=== PATIENT | female | born 1935 | race Caucasian/White ===

== ENCOUNTER 2016-12-13 07:30 | Day surgery (SDC) | payer OTHER ==
[~2016-12-13] VITALS: Ht 160 cm; Wt 63.9 kg
[~2016-12-13 07:30] MED LIST: ALPR0.5T99 PO; AMLO5TAB96 PO; ASPI81 PO; ATOR20TA42 PO; CARV6.25 PO; CIPR500T4 PO; CO-Q 10 PO; DICY1TAB26 PO; IMDU60TA PO; KLOR20TA6 PO; LASI20TA PO; PROT40TA PO; RANO500 OR; VITA10002 PO; VITA200017 PO
[2016-12-13] MEDS ORDERED: NS 1000 ML IV SCH (08:00)
[2016-12-13] MEDS ORDERED: INSULIN HUMAN REGULAR 1,000 UNITS/10 ML VIAL SQ PRN (08:15)
[2016-12-13] MEDS ORDERED: CHLORHEXIDINE GLUCONATE 2 % 1 PACK (2 CLOTHS) TOPICAL PRN (08:15)
[2016-12-13] MEDS ORDERED: SODIUM CHLORID 0.9% 500 ML IV PRN (08:15)
[2016-12-13] MEDS ORDERED: MUPIROCIN 2% OINT 1 APPLIC/GM SYR NASAL SCH (08:15)
[2016-12-13] MEDS ORDERED: METOPROLOL TARTRATE 25 MG TAB PO PRN (08:15)
[2016-12-13] MEDS ORDERED: LACTATED RINGER'S 1000 ML IV PRN (08:15)
[2016-12-13] MEDS ORDERED: CHLORHEXIDINE GLUCONATE 2 % 1 PACK (2 CLOTHS) TOPICAL SCH (08:15)
[2016-12-13] MEDS ORDERED: POVIDONE IODINE 5% (ANTISEPSIS KIT) 4 APPLICATIONS EACH NARE SCH (08:15)
[2016-12-13] MEDS ORDERED: VANCOMYCIN 1000 MG/NS 250 ML IV SCH ×2 (08:15)
[2016-12-13] MEDS ORDERED: POVIDONE IODINE 5% (ANTISEPSIS KIT) 4 APPLICATIONS EACH NARE PRN (08:15)
[2016-12-13] MEDS ORDERED: LORazepam 1 MG TAB SL SCH (08:15)
[2016-12-13] MEDS ORDERED: ceFAZolin 2 GM PREMIX 50 ML IV SCH (08:15)
[2016-12-13 08:42] VITALS: BP 140/67; PULSE 70; RESP 18; TEMP 98.3; O2SAT 97
[2016-12-13 09:00] LABS: AUTOMATED NEUTROPHIL # 3.7 TH/MM3 (1.8-7.7); BASOPHIL % 0.5 % (0.0-2.0); EOSINOPHIL # 0.2 TH/MM3 (0-0.4); EOSINOPHIL % 2.7 % (0.0-4.0); HEMATOCRIT 37.8 % (35.0-46.0); HEMO FLAGS DIFF FINAL; LYMPH % 27.1 % (9.0-44.0); LYMPHOCYTE # 1.7 TH/MM3 (1.0-4.8); MEAN CELL VOLUME 92.9 FL (80.0-100.0); MEAN CORPUSCULAR HGB CONC 34.5 % (32.0-36.0); NEUT % 58.7 % (16.0-70.0); PLATELET COUNT 218 TH/MM3 (150-450); RED BLOOD COUNT 4.07 MIL/MM3 (4.00-5.30); RED CELL DISTRIBUTION WIDTH 15.1 % (11.6-17.2); WHITE BLOOD COUNT 6.4 TH/MM3 (4.0-11.0)
[2016-12-13] MEDS ORDERED: PEPP90CA PO (09:04)
[2016-12-13] MEDS ORDERED: MULTTAB25 PO (09:04)
[2016-12-13] MEDS ORDERED: ATOR20TA15 PO (09:04)
[2016-12-13] MEDS ORDERED: FLUT1SPR5 EACH NARE (09:04)
[2016-12-13] MEDS ORDERED: CYCL7.5E EACH EYE (09:04)
[2016-12-13] MEDS ORDERED: LACTCAP8 PO (09:04)
[2016-12-13] MEDS ORDERED: BIOTCAP PO (09:04)
[2016-12-13] MEDS ORDERED: NITR0.4S SL (09:04)
[2016-12-13] MEDS ORDERED: ALPR.5 PO (09:04)
[2016-12-13] MEDS ORDERED: ALAV10TA4 PO (09:04)
[2016-12-13] MEDS ORDERED: FURO1TAB62 PO (09:04)
[2016-12-13] MEDS ORDERED: CARV6.252 PO (09:04)
[2016-12-13] MEDS ORDERED: FEXO15TA PO (09:04)
[2016-12-13] MEDS ORDERED: VITA100021 PO (09:04)
[2016-12-13] MEDS ORDERED: RANO500 PO (09:04)
[2016-12-13] MEDS ORDERED: COQ-50CA2 PO (09:04)
[2016-12-13] MEDS ORDERED: ASPI81CH37 CHEW (09:04)
[2016-12-13] MEDS ORDERED: AMLO10 PO (09:04)
[2016-12-13] MEDS ORDERED: VITA1000 PO (09:04)
[2016-12-13] MEDS ORDERED: ISOS60TA PO (09:04)
[2016-12-13] MEDS ORDERED: POTA-243 PO (09:04)
[2016-12-13 09:20] LABS: BICARBONATE 25.7 MEQ/L (21.0-32.0); POTASSIUM 3.8 MEQ/L (3.5-5.1)
[2016-12-13 09:36] LABS: APTT (PATIENT) 25.1 SEC (24.3-30.1); INTERNATIONAL NORMALIZED RATIO 1.1 RATIO; PROTHROMBIN TIME - PATIENT 11.7 SEC (9.8-11.6)
[2016-12-13] MEDS ORDERED: MIDAZOLAM HCL 2 MG/2 ML VIAL ONE (11:48)
[2016-12-13] MEDS ORDERED: PROPOFOL 200 MG/20 ML AMP IV ONE (11:53)
[2016-12-13] MEDS ORDERED: LIDOCAINE HCL 2% 50 ML VIAL ONE (12:09)
[2016-12-13] MEDS ORDERED: VANCOMYCIN 500 MG VIAL ONE (12:09)
[2016-12-13] MEDS ORDERED: ACETAMINOPHEN/CODEINE 300 MG/30 MG TAB PO PRN ×2 (13:00)
[2016-12-13] MEDS ORDERED: ONDANSETRON HCL 4 MG/2 ML VIAL IV PRN (13:00)
[2016-12-13] MEDS ORDERED: CEPH-460 PO (13:01)
[2016-12-13] MEDS ORDERED: ACET-534 PO (13:01)
--- NOTE | 2016-12-13 13:06 | CATHPROC ---
[facility] HIS Report Study Information Study Number Admission Scheduled Start Study Start [id number] Dec 13 2016 7:30AM 12/13/2016 Dec 13 2016 11:27AM [employer] Service Cardiac Pacer/ICD Admit Source Facility Department Other [facility] - [employer] Physician and Clinical Staff Initial Xavier Michelle Director Of Religious Life Tank Magana,RT(R) Other Anesthesia, TANK TRUCK OPERATOR Other Jordyn Duncan BSRN Recorder Narda Marie RN Scrub Antoinette Segovia RCIS Equipment Time Student Records Specialist Description Size Mfg Part Number Used/Scraped CATHETER, BIFURCATED 12:44 ANGIO-DYNAMICS FR [id number] Used INFUSION BENEPHIT 12:45 BIOTRONIK DEFIBRILLATOR, ITREVIA 7 HF-T VVE-[id number] Used DERMABOND, ADHESIVE SKIN [id number] 11:30 CORDIS/PACER * Used GLUE MINI *[id number] 11:30 MEDLINE INDUSTRIES SUTURE, STRIP PLUS 1/2" * Used *[id number] 11:30 MEDLINE PACER KING, LIMB * 2530 *[id number] Used [id number] 11:30 MEDLINE PACER PACK, PACER CUSTOM * Used *[id number] 12:47 Needle Sponge Count 1 1 Used 12:24 Needle Sponge Count 1 1 Used 12:54 Needle Sponge Count 1 1 Used 12:25 Needle Sponge Count 1 111 Used 12:54 Needle Sponge Count 1 111 Used 12:54 Needle Sponge Count 20 200 Used 12:25 Needle Sponge Count 20 200 Used 12:47 Needle Sponge Count 20 200 Used SUTURE, 2-0 VICRYL [CT1] ([id number]) SUTURE, 4-0 VICRYL [PS2] ([id number]) [id number] 11:30 [facility] BLANKET,WARM AIR CCL * Used *[id number] [facility] PAD, ELECTROSURGICAL 11:30 * [id number] *[id number] Used SURGICAL GROUNDING ORANGE 12:08 VITATRON [employer] PLASMABLADE, PEAD 3.0S * [id number] Used Equipment Model, Serial, Lot Number and Expiration Data Description Model Number Serial Number Lot Number Expiration Date DEFIBRILLATOR, ITREVIA 7 HF-T [id number] 11-26-2017 History: Current Medications Medication Dosage/Unit Route Frequency Last Date/Time Taken ASA Statins (any) CARVEDILOL LASIX NORVASC Xanax History: Allergies Allergy Reaction Enalapril DIZZINESS Meperidine NAUSEA VOMITING Micardis dizziness Oxycodone Promethazine HALLUCINATIONS Zoloft severe aggitation History: Risk Factors Hypertension Dyslipidemia Yes Yes Diabetes History: Symptoms/Diagnosis Selection Items VICTORIA History: CV Disease Selection Items Cardiomyopathy ischemic Known CAD History: Other Disease Selection Items CAD HTN Labs Hgb (g/dl) Hct (%) RBC (MIL/MM3) WBC (l/cumm) Platelets (thousands) 11.60-17.00 35.00-51.00 4.00-5.90 4.00-11.00 150.00-450.00 13.0 37 4 6.4 218 Glucose (mg/dl) BUN (mg/dl) Creatinine (mg/dl) BUN:Creatinine (1:x) 74.00-106.00 7.00-18.00 0.50-1.30 10.00-20.00 139 18 0.8 22.5 Na (meq/l) K (meq/l) Cl (meq/l) CO2 (mmol/L) Ca (mg/dl) 136.00-145.00 3.50-5.10 98.00-107.00 21.00-32.00 8.50-10.10 142 3.8 107 25.7 9.9 INR (PTT:PT) 0.90-1.10 1.1 Medication Medication Total Dose (Bolus/Oral) Medication Total Dosage/Unit 2% XYLOCAINE 50 mL Medications (Bolus/Oral) Medication Time Given Dosage/Unit Administered By Reason 2% XYLOCAINE 12/13/2016 12:39:07 PM 50 mL Xavier Mckeon As per physicians ve rbal order 50 mL 2% XYLOCAINE given in lab by Xavier Mckeon via Subcutaneous. Ordered by Xavier Mckeon. Reason: As per physicians verbal order. left upper chest Medication (Drip) Medication Time Given Dosage/Unit Concentration/Unit Diluent (ml) Solution ANCEF 12/13/2016 12:05:00 PM 2 g 2 g ANCEF given in lab by Narda Marie RN in Right Antecubital via Peripheral IV. Ordered by Xavier Duvall. Reason: As per physicians verbal order. IV Solutions 12/13/2016 11:58:37 AM 0 mL (IV) NaCl .9 Patient arrived on IV Solutions in Right Antecubital via Peripheral IV. Pump/Drip Flow = 50 ml/hr usi ng NaCl .9. Ordered by Xavier Mckeon. Reason: As per physicians verbal order. IV Solutions 12/13/2016 11:59:09 AM 0 mL (IV) NaCl .9 Patient arrived on IV Solutions in Left Wrist via Peripheral IV. Pump/Drip Flow = 50 ml/hr using NaCl .9. Ordered by Xavier Mckeon. Reason: As per physicians verbal order. VANCOMYCIN DRIP 12/13/2016 12:05:01 PM 1 g 1 g VANCOMYCIN DRIP given in lab by Narda Marie RN in Right Antecubital via Peripheral IV. Orde red by Xavier Mckeon. Reason: As per physicians verbal order. Initial Case Assessment Cardiovascular HR NIBP Chest Pain 68 123/56 0 Edema Present Skin color Skin None Normal Warm Dry Neurological State Oriented to time-place- Alert Moves all extremities person Respiration - General Respiration Rate SpO2 (%) (B/min) 18 95 Final Case Assessment Cardiovascular HR NIBP Chest Pain 68 101/52 0 Edema Present Skin color Skin None Normal Warm Dry Neurological State Oriented to time-place- Alert Moves all extremities person Respiration - General Respiration Rate SpO2 (%) (B/min) 18 96 Chronological Log Time Study Chronological Log 11:53:47 Patient arrived via Bed. 11:56:05 Patient Name, D.O.B, / Armband Verified By R.N. 11:56:09 Consent signed by the physician and the patient and verified by the [employer] staff. 11:56:11 Pre-op and post- op instructions given; patient acknowledges understanding of instructions. 11:56:13 Verbal Stimulation=2 Physical Stimulation=2 Airway=2 Respiration=2 TOTAL=10. (0=absent, 1=l imited, 2=present) 11:56:28 Anesthesia at bedside. Assumes care of patient. Ricardo TANK TRUCK OPERATOR 11:56:54 Patient has been NPO for More than 6Hrs. 11:56:58 Skin Breakdown- none Assessment: Initial Case, HR=68 BPM, NBTQ=567/56 mmhg, Chest Pain=0, Edema=None, Color=Normal, Skin = Warm, Dry 11:57:00 Neurological: State=Alert, Ox3, BOWEN Respiration: Resp=18 B/min, SpO2=95 % 11:57:06 Patient Warmer Placed on the Table. 11:57:10 Disposable Defibrillator Pads Placed On Patient. 11:57:12 Graciela Prominences Protected 11:57:58 A # 20 IV was noted in the Antecubital (right). Grade = ~GRADE~ 11:58:13 A # 20 IV was noted in the Wrist (left). Grade = ~GRADE~ 11:58:34 History and physical on the chart or being dictated. Patient arrived on IV Solutions in Right Antecubital via Peripheral IV. Pump/Drip Flow = 50 ml/ hr using NaCl .9. Ordered 11:58:37 by Xavier Mckeon. Reason: As per physicians verbal order. Patient arrived on IV Solutions in Left Wrist via Peripheral IV. Pump/Drip Flow = 50 ml/hr usin g NaCl .9. Ordered by 11:59:09 Xavier Mckeon. Reason: As per physicians verbal order. 11:59:54 Table restraints applied according to hospital policy 12:00:09 Left Upper Chest Prepped Times Two. 12:00:16 Bovie ground pad applied to: right thigh 12:00:25 2% CHLORHEXIDINE GLUCONATE WASH AND NASAL SWIPE DONE PRIOR TO PROCEDURE. 12:00:27 Pre-procedure assessment data was performed with the previous procedure. 2 g ANCEF given in lab by Narda Marie RN in Right Antecubital via Peripheral IV. Ordered by Xavier Mckeon. 12:05:00 Reason: As per physicians verbal order. 1 g VANCOMYCIN DRIP given in lab by Narda Marie RN in Right Antecubital via Peripheral IV . Ordered by Linda, 12:05:01 Xavier. Reason: As per physicians verbal order. First Sponge And Instrument Count Done by Tank Magana, RT(R). 12:24:00 Hypo's: 1, Sponges: 20, Bovie/scratch: 1 Sutures: 2, Blades: 1, Instruments: 26, Syveck Patches: 0 12:35:10 MD arrived. 12:35:21 Immediate Presedation assesment performed by physician. Time Out. Correct patient, procedure, procedure equipment, site and side verified with physicia n present. Time 12:37:00 concurred by MD, individual staff and TANK TRUCK OPERATOR. Time Out #2 - Consents verified, patient in correct position, all results are labled and displa yed, safety precautions 12:37:00 taken, antibiotics administered. Time out concurred by MD, individual staff and TANK TRUCK OPERATOR in procedu re 12:38:45 Case Start 50 mL 2% XYLOCAINE given in lab by Xavier Mckeon via Subcutaneous. Ordered by Xavier Mckoen. Re ason: As per 12:39:07 physicians verbal order. left upper chest 12:40:01 Pocket opened. 12:40:19 A device was explanted. 12:45:37 Pocket flushed with antibiotic solution 12:46:10 A DEFIBRILLATOR, ITREVIA 7 HF-T VVE-DDDRV was connected and placed in the pocket. 12:47:02 Implant Procedure was performed. 12:47:13 A Bivent ICD Implant . (Dual) Second Sponge And Instrument Count Done by Tank Magana RT(R). 12:50:00 Hypo's: 1, Sponges: 20, Bovie/scratch: 1 Sutures: ~SUTURE~, Blades: 1, Instruments: ~INSTRU~, Syveck Patches: ~SYVECK PATCH~ one suture added 12:52:13 The pocket was closed. 12:53:20 Steri-strips and a sterile dressing applied to site. The Final Sponge And Instrument Count Done by Tank Magana RT(R). 12:53:56 Hypo's: 1, Sponges: 20, Bovie/scratch: 1 Sutures: 3, Blades: 1, Instruments: 26, Syveck Patches: 0 12:54:00 Defibrillator and ground pads removed. Skin intact. Assessment: Final Case, HR=68 BPM, DVJG=360/52 mmhg, Chest Pain=0, Edema=None, Color=Normal, Sk in = Warm, Dry 12:56:01 Neurological: State=Alert, Ox3, BOWEN Respiration: Resp=18 B/min, SpO2=96 % 12:56:58 No case complications noted. 12:57:08 Cine recording checked. 12:57:14 Implantable Device card placed in patient's chart. 13:05:00 Holding Area notified of successful intervention. 13:08:00 Case End 13:15:00 Patient moved to stretcher and transferred to [facility] in stable condition. End Study - Contrast Media Used In Study Contrast Total Opened (mL) Total Used (mL) Total Wasted (mL) Unspecified 0 0 0 End Study - Maximum Contrast Load Max Contrast Load (mL) 399.4 End Study - Radiation Exposure Fluoro Time (minutes) 0.1 End Study - Patient Disposition Complications Transferred To Interventional Outcome No Telemetry Bed successful
--- NOTE | 2016-12-13 19:29 | EKG ---
Date Performed: 12/13/2016 Time Performed: 09:02:02 PTAGE: 81 years EKG: A-V sequential pacemaker. Pacemaker rhythm - no further analysis Abnormal ECG PREVIOUS TRACING : 12/26/2013 04.52 Since previous tracing, no significant change noted DOCTOR: Vijay Crespo Interpretating Date/Time 12/13/2016 19:28:12
--- NOTE | 2016-12-17 13:18 | MP ---
cc: JAMAAL SALAZAR M.D. DATE OF SURGERY 12/13/2016 PROCEDURE PERFORMED Biventricular pacer defibrillator removal, biventricular pacer defibrillator replacement and pocket revision. INDICATIONS Mrs. Becker is an 81-year-old female with congestive heart failure, and cardiomyopathy. The patient has a previous biventricular pacer defibrillator implanted. She is pacemaker dependent. Generator currently end of life and will undergo biventricular pacer defibrillator removal and replacement and pocket revision. The risks, the nature and the benefit of the procedure were clearly stated to her. The risks include pneumothorax, cardiac perforation, stroke, need for open heart surgery and even . The patient understood and agreed to proceed. PROCEDURE After written informed consent was obtained, the patient was brought to the EP lab where she was prepped and draped in the usual sterile fashion. Conscious sedation was initiated and maintained throughout the procedure by anesthesiologist. Once sedation verified, the left infraclavicular area over the existing generator was anesthetized with 2% Xylocaine. Using a #11 scalpel, a 3-cm incision was made over the existing generator. Dissection was then taken down through the fascial layer using Bovie cautery and blunt dissection. Once exposed, the generator was removed from the pocket. Scar tissue was removal from around the lead. The pocket was expanded. Pocket revision was performed. Then the leads were disconnected from the generator and tested. After adequate pacing and sensing thresholds were obtained, the pocket was copiously irrigated using antibiotic solution. The leads were connected to the new generator and placed into the pocket. I did proceed with wound closure. The deep fascial layer was approximated with 2-0 Vicryl suture in a continuous fashion. The subcutaneous layer was approximated using 2-0 Vicryl suture in a continuous fashion. The subcuticular layer was approximated using #2-0 Vicryl suture in a continuous fashion. Dermabond adhesive was applied to the wound followed by sterile pressure dressing. There was no complication. The patient tolerated the procedure. Blood loss minimal. EXPLANTED HARDWARE The explanted biventricular pacer defibrillator is a [employer] model number [id number], serial number [id number]. IMPLANTED HARDWARE The implanted biventricular pacer defibrillator is a [employer] model number [id number], serial number [id number]. THRESHOLD The right atrial pacing threshold in the bipolar mode was 0.8 volts at 0.4 milliseconds. Lead impedance 707 ohm. P-wave at 3.7 mV. The right ventricular pacing defibrillator in the bipolar mode was 0.9 volts at 0.4 milliseconds. Lead impedance 105 ohms. R-wave cannot be measured. The patient is pacemaker dependent. The left ventricular pacing threshold in the bipolar mode was 1.3 volts at 1 millisecond. Lead impedance 680 ohms. SETTING The device set in a DDDR 70 upper rate limit 130 beats per minute. LV first by 40 milliseconds. Defibrillatory portion for two zones, one zone for ventricle tachycardia between 117-240 beats per minute. Initial therapy consists of one burst of ATP, one ramp, 81%, 10 pause, 70-second decremental followed by 20 than 30 and all subsequent shocks at 40 joule defibrillatory shock. Second zone for ventricular fibrillation above 240 beats per minute, first therapy at 30 and all subsequent shocks at 40 joule defibrillatory shock. CONCLUSION Successful biventricular pacer defibrillator removal, biventricular pacer defibrillator replacement, pocket revision, COMMENT AND RECOMMENDATIONS The patient is going to be transferred to the telemetry unit. He will be observed and when stable can be discharged home. MD ISH Lacey/JESS /10:32 AM /1:11 PM
== END 2016-12-13 16:00 | disposition home or self-care (01) ==
LOC: HCAT 07:30 → HDIC 07:31 → HCAT 16:00
PROVIDERS: ATTEND Internal Medicine Interventional Cardiology
DX: Z45.02 Encounter for adjustment and management of automatic implantable cardiac defibrillator (principal); I11.0 Hypertensive heart disease with heart failure; I50.9 Heart failure, unspecified; I44.39 Other atrioventricular block; R06.02 Shortness of breath; Z79.82 Long term (current) use of aspirin
CPT/HCPCS: 00530; 33264; 80048; 85025; 85610; 85730; 86850; 86900; 86901; 93005; C1882; J0690; J2250; J3010; J3370; J7050

== ENCOUNTER 2016-12-17 16:27 | Emergency (ER) | payer OTHER ==
[~2016-12-17] VITALS: Ht 162.6 cm; Wt 62.0 kg
[~2016-12-17 16:27] MED LIST changes: +ACET-534 PO; +ALAV10TA4 PO; +ALPR.5 PO; -ALPR0.5T99 PO; +AMLO10 PO; -AMLO5TAB96 PO; -ASPI81 PO; +ASPI81CH37 CHEW; +ATOR20TA15 PO; -ATOR20TA42 PO; +BIOTCAP PO; -CARV6.25 PO; +CARV6.252 PO; +CEPH-460 PO; -CIPR500T4 PO; +COQ-50CA2 PO; +CYCL7.5E EACH EYE; -DICY1TAB26 PO; +FEXO15TA PO; +FLUT1SPR5 EACH NARE; +FURO1TAB62 PO; -IMDU60TA PO; +ISOS60TA PO; -KLOR20TA6 PO; +LACTCAP8 PO; -LASI20TA PO; +MULTTAB25 PO; +NITR0.4S SL; +PEPP90CA PO; +POTA-243 PO; -PROT40TA PO; -RANO500 OR; +RANO500 PO; +VITA1000 PO; -VITA10002 PO; +VITA100021 PO; -VITA200017 PO
[2016-12-17 16:29] VITALS: BP 158/73; PULSE 73; RESP 17; TEMP 97.9; O2SAT 99
[2016-12-17] MEDS ORDERED: SODIUM CHLORIDE 0.9% FLUSH 10 ML FLUSH IVF PRN (17:00)
--- NOTE | 2016-12-17 17:07 | PD ---
HPI . Dizziness and jaw pain Chief Complaint: Cardiac Complaint Time Seen by Provider: 16:47 Travel History International Travel<30 days: No Contact w/Intl Traveler<30days: No Traveled to known affect area: No History of Present Illness HPI This patient presents with the chief complaint of dizziness, nausea and jaw pain. Symptoms started 2 days ago. Symptoms are exacerbated on standing and improved on lying down. The symptoms are mild. This patient had a replacement of her AICD/pacemaker 4 days ago. She states that this is her third pacemaker. She states that she had a lot of trouble with the first pacemaker and that they had to make numerous adjustments before she felt okay. She states that the symptoms that she is having today are similar to symptoms that she has had when they have interrogated her pacemaker. She also believes that the symptoms are similar to those that she had following the insertion of the first pacemaker when there were problems with the pacemaker. PFSH Past Medical History Arthritis: Yes (OSTEO HIPS KNEES) Asthma: No Autoimmune Disease: No Blood Disorders: Yes (5 YEARS AGO BLEEDING IN STOMACH) Anxiety: Yes Depression: No Heart Rhythm Problems: Yes (IRREGULAR RHYTHM) Cancer: No Cardiac Catheterization: Yes (X 4) Cardiovascular Problems: Yes (PACEMAKER) High Cholesterol: Yes Chemotherapy: No Chest Pain: Yes Congestive Heart Failure: No COPD: No Cerebrovascular Accident: No Coronary Artery Disease: Yes Diminished Hearing: No Diverticulitis: Yes Gastrointestinal Disorders: Yes (GI BLEED, S/P COLONOSCOPY 6 MOS AGO) GERD: No Glaucoma: No Genitourinary: Yes (KIDNEY STONES 10 YRS AGO) Headaches: No Hepatitis: No Hiatal Hernia: No Hypertension: Yes Kidney Stones: Yes (13 YEARS AGO) Musculoskeletal: Yes Neurologic: No Psychiatric: Yes Reproductive: No Respiratory: No Myocardial Infarction: No Radiation Therapy: No Renal Failure: No Seizures: No Sleep Apnea: No Thyroid Disease: No Ulcer: No Menopausal: Yes Past Surgical History Abdominal Surgery: No AICD: No Cardiac Surgery: Yes (STENTS, CATH, PACEMAKER/DEFIB) Cholecystectomy: Yes Coronary Stent: Yes (1998) Ear Surgery: No Endocrine Surgery: No Eye Surgery: No Genitourinary Surgery: No Gynecologic Surgery: Yes (HYSTERECTOMY 1977) Hysterectomy: Yes (PARTIAL) Neurologic Surgery: No Oral Surgery: No Pacemaker: Yes (PLACED 11/12/11) Thoracic Surgery: No Tonsillectomy: Yes Other Surgery: Yes Social History Alcohol Use: No Tobacco Use: No Substance Use: No Allergies-Medications (Allergen,Severity, Reaction): Coded Allergies: Meperidine (Verified Allergy, Severe, NAUSEA VOMITING, 09/05/14) Oxycodone (Verified Allergy, Severe, 09/05/14) C/O CHEST TIGHTNESS Promethazine (Verified Allergy, Severe, HALLUCINATIONS, 09/05/14) Zoloft (Verified Allergy, Severe, severe aggitation, 09/05/14) Enalapril (Verified Allergy, Intermediate, DIZZINESS, 09/05/14) Micardis (Verified Allergy, Mild, dizziness, 09/05/14) Reported Meds & Prescriptions Reported Meds & Active Scripts Active Keflex (Cephalexin) 500 Mg Cap 500 Mg PO Q8H PRN Acetaminophen/Codeine Scott 300-30 mg (Acetaminophen W/ Codeine) 1 Tab Tab 1 Tab PO Q4H PRN Reported Xanax (Alprazolam) 0.5 Mg Tab 0.5 Mg PO Q4H PRN Vitamin D-1000 (Cholecalciferol) 1,000 Unit Tab 1,000 Units PO DAILY Restasis Multidose Opth (Cyclosporine Opth) 0.05% Emul 1 Drop EACH EYE DAILY Ranexa ER 12 HR (Ranolazine) 500 Mg Tab 500 Mg PO BID Norvasc (Amlodipine Besylate) 10 Mg Tab 10 Mg PO DAILY Nitrostat SL (Nitroglycerin) 0.4 Mg Subl 0.4 Mg SL DIRECTED PRN 1 tablet under the tongue as needed for chest pain. Repeat every 5 minutes for a total of 3 DOSES or call 911 if NO relief. Multi For Her 50+ (Multiple Vitamins W/ Minerals) 1 Tab Tab 1 Cap PO DAILY Lasix (Furosemide) 20 Mg Tab 20 Mg PO DAILY Klor-Con 10 (Potassium Chloride) 10 Meq Tab 20 Meq PO DAILY Isosorbide Mononitrate ER (Isosorbide Mononitrate) 60 Mg Tab 60 Mg PO DAILY Ibgard (Peppermint Oil) 90 Mg Capdr...er 1 Tab PO DAILY Flonase Nasal Sayner (Fluticasone Nasal Sayner) 50 Mcg/Act Sayner 50 Mcg EACH NARE BID Coq-10 (Coenzyme Q10 (Ubidecarenone)) 50 Mg Cap 1 Tab PO DAILY Carvedilol 6.25 Mg Tab 6.25 Mg PO BID Biotin 5 Mg Cap 5 Mg PO Vitamin B-12 (Cyanocobalamin) 1,000 Mcg Subl 1,000 Mcg PO DAILY Atorvastatin (Atorvastatin Calcium) 20 Mg Tab 20 Mg PO HS Aspirin Low Dose (Aspirin) 81 Mg Chew 81 Mg CHEW DAILY Amy Allergy (Fexofenadine HCl) 180 Mg Tab 180 Mg PO DAILY Alavert Odt (Loratadine) 10 Mg Tab 10 Mg PO DAILY Probiotic (Lactobacillus Acidophilus) 1 Cap Cap 1 Cap PO TIDAC [Co-Q 10] 100 Mg PO DAILY Review of Systems Except as stated in HPI: all other systems reviewed are Neg HENT: Positive: Lightheadedness Gastrointestinal: Positive: Nausea Physical Exam Narrative GENERAL: This is a spry appearing 81-year-old woman who is in no acute distress. SKIN: Warm and dry. She has some old bruising on the left upper chest wall. HEAD: Atraumatic. Normocephalic. EYES: Pupils equal and round. Extraocular movements are intact. ENT: No nasal bleeding or discharge. Mucous membranes pink and moist. NECK: Trachea midline. Neck is supple. CARDIOVASCULAR: Regular rate and rhythm. Heart sounds are normal. RESPIRATORY: No accessory muscle use. Lungs are clear with good air movement throughout. GASTROINTESTINAL: Abdomen soft, non-tender, nondistended. MUSCULOSKELETAL: No obvious deformities. No edema. NEUROLOGICAL: Awake and alert. No obvious cranial nerve deficits. Motor grossly within normal limits. Normal speech. PSYCHIATRIC: Appropriate mood and affect; insight and judgment normal. Data Data Last Documented VS Vital Signs Date Time Temp Pulse Resp B/P Pulse Ox O2 Delivery O2 Flow Rate FiO2 12/17/16 18:32 76 18 154/70 97 Room Air 12/17/16 16:29 97.9 Orders Electrocardiogram (12/17/16 ) Basic Metabolic Panel (Bmp) (12/17/16 16:57) Ckmb (Isoenzyme) Profile (12/17/16 16:57) Complete Blood Count With Diff (12/17/16 16:57) Magnesium (Mg) (12/17/16 16:57) Prothrombin Time / Inr (Pt) (12/17/16 16:57) Act Partial Throm Time (Ptt) (12/17/16 16:57) Troponin I (12/17/16 16:57) Chest, Single Ap (12/17/16 16:57) Ecg Monitoring (12/17/16 16:57) Iv Access Insert/Monitor (12/17/16 16:57) Oximetry (12/17/16 16:57) Sodium Chloride 0.9% Flush (Ns Flush) (12/17/16 17:00) Labs Laboratory Tests Test 12/17/16 17:20 White Blood Count 6.4 TH/MM3 Red Blood Count 4.00 MIL/MM3 Hemoglobin 12.8 GM/DL Hematocrit 37.0 % Mean Corpuscular Volume 92.6 FL Mean Corpuscular Hemoglobin 32.0 PG Mean Corpuscular Hemoglobin 34.5 % Concent Red Cell Distribution Width 14.8 % Platelet Count 152 TH/MM3 Mean Platelet Volume 10.0 FL Neutrophils (%) (Auto) 60.5 % Lymphocytes (%) (Auto) 24.9 % Monocytes (%) (Auto) 10.8 % Eosinophils (%) (Auto) 3.1 % Basophils (%) (Auto) 0.7 % Neutrophils # (Auto) 3.8 TH/MM3 Lymphocytes # (Auto) 1.6 TH/MM3 Monocytes # (Auto) 0.7 TH/MM3 Eosinophils # (Auto) 0.2 TH/MM3 Basophils # (Auto) 0.0 TH/MM3 CBC Comment DIFF FINAL Differential Comment Prothrombin Time 11.1 SEC Prothromb Time International 1.0 RATIO Ratio Activated Partial 25.0 SEC Thromboplast Time Sodium Level 141 MEQ/L Potassium Level 3.7 MEQ/L Chloride Level 105 MEQ/L Carbon Dioxide Level 27.2 MEQ/L Anion Gap 9 MEQ/L Blood Urea Nitrogen 19 MG/DL Creatinine 0.84 MG/DL Estimat Glomerular Filtration 65 ML/MIN Rate Random Glucose 128 MG/DL Calcium Level 9.5 MG/DL Magnesium Level 1.9 MG/DL Total Creatine Kinase 36 U/L Troponin I LESS THAN 0.02 NG/ML MDM Medical Decision Making Medical Screen Exam Complete: Yes Emergency Medical Condition: Yes Medical Record Reviewed: Yes (this patient's medical history is significant for coronary artery disease, CHF, hyperlipidemia, diabetes, 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 Differential Diagnosis Differential diagnosis of dizziness includes but is not limited to vertigo, dehydration, acute blood loss, sepsis, ACS Narrative Course This patient presents with dizziness, nausea and jaw pain which started 2 days after her pacemaker was changed. She states that her symptoms are very similar to symptoms that she has had when her pacemaker was being interrogated. Therefore, I will start by having the crime lab technician interrogate her pacemaker. CBC & BMP Diagram 12/17/16 17:20 Her cardiac enzymes are negative. Her pacemaker interrogation was reportedly normal. Diagnosis Primary Impression: Dizziness Additional Impression: Pacemaker Disposition: 01 DISCHARGE HOME Condition: Stable Teodora Cesar MD Dec 17, 2016 17:07 Teodora Cesar MD Dec 17, 2016 17:07
[2016-12-17 17:25] VITALS: O2SAT 97
[2016-12-17 17:53] LABS: AUTOMATED NEUTROPHIL # 3.8 TH/MM3 (1.8-7.7); BASOPHIL % 0.7 % (0.0-2.0); EOSINOPHIL # 0.2 TH/MM3 (0-0.4); EOSINOPHIL % 3.1 % (0.0-4.0); HEMO FLAGS DIFF FINAL; LYMPH % 24.9 % (9.0-44.0); LYMPHOCYTE # 1.6 TH/MM3 (1.0-4.8); MEAN CELL VOLUME 92.6 FL (80.0-100.0); MEAN CORPUSCULAR HGB CONC 34.5 % (32.0-36.0); MONO % 10.8 % (0.0-8.0); NEUT % 60.5 % (16.0-70.0); PLATELET COUNT 152 TH/MM3 (150-450); RED CELL DISTRIBUTION WIDTH 14.8 % (11.6-17.2); WHITE BLOOD COUNT 6.4 TH/MM3 (4.0-11.0)
--- NOTE | 2016-12-17 17:53 | RADRPT ---
EXAM DATE/TIME: 12/17/2016 17:19 [place] COMPARISON: No previous studies available for comparison. INDICATIONS : Weakness, dizziness for 6 hours MEDICAL HISTORY : None. SURGICAL HISTORY : Pacemaker. ENCOUNTER: Initial ACUITY: 1 day PAIN SCORE: 0/10 LOCATION: Bilateral chest FINDINGS: Pacemaker device is noted with control pack over the left chest. Lungs are focally clear. No pleural effusion is evident. Visualized cardiomediastinal contours are satisfactory. CONCLUSION: No acute disease Edgar Claros MD on December 17, 2016 at 17:51 Board Certified Radiologist. This report was verified electronically.
[2016-12-17 18:14] LABS: PROTHROMBIN TIME - PATIENT 11.1 SEC (9.8-11.6)
[2016-12-17 18:15] LABS: ANION GAP 9 MEQ/L (5-15); BICARBONATE 27.2 MEQ/L (21.0-32.0); BLOOD UREA NITROGEN 19 MG/DL (7-18); CHLORIDE 105 MEQ/L (98-107); GLOMERULAR FILTRATION RATE 65 ML/MIN (>89); MAGNESIUM 1.9 MG/DL (1.5-2.5); POTASSIUM 3.7 MEQ/L (3.5-5.1); SODIUM (NA) 141 MEQ/L (136-145)
[2016-12-17 18:21] LABS: CREATINE KINASE 36 U/L (26-192)
[2016-12-17 18:32] VITALS: BP 154/70; PULSE 76; RESP 18; O2SAT 97
--- NOTE | 2016-12-18 12:03 | EKG ---
Date Performed: 12/17/2016 Time Performed: 17:03:35 PTAGE: 81 years EKG: ELECTRONIC ATRIAL PACEMAKER ELECTRONIC VENTRICULAR PACEMAKER Since previous tracing, no sig nificant change noted Since previous tracing, no significant change noted ABNORMAL RHYTHM ECG PREVIOUS TRACING : 12/13/2016 09.02 DOCTOR: Eric Costa Interpretating Date/Time 12/18/2016 12:02:51
== END 2016-12-17 19:30 | disposition home or self-care (01) ==
LOC: NEPE 16:27
DX: R42 Dizziness and giddiness (principal); Z95.5 Presence of coronary angioplasty implant and graft; Z95.0 Presence of cardiac pacemaker; Z87.442 Personal history of urinary calculi; Z79.82 Long term (current) use of aspirin; I25.10 Atherosclerotic heart disease of native coronary artery without angina pectoris; I10 Essential (primary) hypertension; E78.00 Pure hypercholesterolemia, unspecified
CPT/HCPCS: 71010; 80048; 82550; 83735; 84484; 85025; 85610; 85730; 93005; 99285